=== PATIENT | female | born 1955 | race Caucasian/White ===

== ENCOUNTER 2017-11-08 19:28 | Emergency (ER) | payer BC ==
[2017-11-08 19:42] VITALS: TEMP 96.5; O2SAT 99
--- NOTE | 2017-11-08 19:42 | ED.PDOC ---
History of Present Illness - General Chief Complaint: Trauma Stated Complaint: slipped, falling on left wrist, abrasion L elbow Time Seen by Provider: 11/08/17 19:42 Source: patient, RN notes reviewed, Vital Signs reviewed, family Exam Limitations: no limitations - History of Present Illness Timing/Duration: 1 hour Severity: moderate Improving Factors: immobilization Worsening Factors: movement Associated Symptoms: denies symptoms Allergies/Adverse Reactions: Allergies NO KNOWN ALLERGY Allergy (Verified 11/08/17 19:43) Home Medications: Ambulatory Orders Acetamin W/Cod #3 Tab [Tylenol w/CODEINE #3] 1 ea PO Q4H PRN #20 tab 11/08/17 Lisinopril 20 mg PO DAILY 11/08/17 Review of Systems - Review of Systems Constitutional: States: no symptoms reported EENTM: States: no symptoms reported Respiratory: States: no symptoms reported Cardiology: States: no symptoms reported Gastrointestinal/Abdominal: States: no symptoms reported Musculoskeletal: States: see HPI Skin: States: other - abrasion Neurological: States: no symptoms reported Family Medical History - Family History Mother Family History: Unknown Physical Exam - Physical Exam General Appearance: Alert Eye Exam: bilateral normal Ears, Nose, Throat: hearing grossly normal, normal ENT inspection, normal pharynx Neck: non-tender, full range of motion, supple, normal inspection Respiratory: chest non-tender, lungs clear, normal breath sounds, no respiratory distress, no accessory muscle use Cardiovascular/Chest: normal peripheral pulses, regular rate, rhythm, no edema, no gallop, no JVD, no murmur Peripheral Pulses: radial,left: 2+ Gastrointestinal/Abdominal: normal bowel sounds, non tender Back Exam: normal inspection, no CVA tenderness, no vertebral tenderness Extremity: other - edema/ tenderness to the left wrist, normal finger neuro and no tenderness and full passive and active ROM of the rest of the extremity Progress - Progress Progress: 11/08/17 20:22 xray shows radial head fracture, non displaced pt placed in left wrist splint by nurse, neurovascular intact Departure - Departure Clinical Impression: Wrist sprain Qualifiers: Encounter type: initial encounter Laterality: left Qualified Code(s): S63.502A - Unspecified sprain of left wrist, initial encounter Wrist contusion Qualifiers: Encounter type: initial encounter Laterality: left Qualified Code(s): S60.212A - Contusion of left wrist, initial encounter Elbow abrasion Qualifiers: Encounter type: initial encounter Laterality: left Qualified Code(s): S50.312A - Abrasion of left elbow, initial encounter Distal radius fracture, left Qualifiers: Encounter type: initial encounter Fracture type: closed Fracture morphology: unspecified fracture morphology Qualified Code(s): S52.502A - Unspecified fracture of the lower end of left radius, initial encounter for closed fracture Time of Disposition: 20:25 Disposition: Discharge to Home or Self Care Condition: Excellent Departure Forms: ED Discharge - Pt. Copy, Patient Portal Self Enrollment Instructions: DI for Trauma Diet: resume usual diet Activity: increase activity as tolerated Referrals: Tommy Dietrich MD [Primary Care Provider] - 1-2 Weeks Tony Sheridan MD [Active Staff] - 1-5 Days Prescriptions: Acetamin W/Cod #3 Tab [Tylenol w/CODEINE #3] 1 ea PO Q4H PRN #20 tab PRN Reason: Pain Home Medications: Ambulatory Orders Acetamin W/Cod #3 Tab [Tylenol w/CODEINE #3] 1 ea PO Q4H PRN #20 tab 11/08/17 Lisinopril 20 mg PO DAILY 11/08/17
[2017-11-08] MEDS ORDERED: NEOMYCIN-BACITRACIN-POLYMYXIN 0.9 GM UD TOP SCH (20:00)
--- NOTE | 2017-11-08 20:08 | RAD ---
EXAM DESCRIPTION: Wrist,Left 3 Views CLINICAL HISTORY: wrist pain, trauma COMPARISON: None FINDINGS: 3 view(s) submitted. There is an intra-articular fracture of the distal radius in near-anatomic alignment. No other definite fracture.. IMPRESSION: Distal radius fracture.. Electronically signed by: Toni Valdes 11/08/2017 8:07 PM CDT
[2017-11-08] MEDS ORDERED: HYDROcodone 5MG/APAP 325MG 1 EA TAB PO ONE (21:12)
[2017-11-08 21:20] VITALS: BP 151/92
== END 2017-11-08 21:20 | disposition home or self-care (01) ==
LOC: ER 19:28
DX: S52.502A Unspecified fracture of the lower end of left radius, initial encounter for closed fracture (principal); S63.502A Unspecified sprain of left wrist, initial encounter; S50.312A Abrasion of left elbow, initial encounter; W01.0XXA Fall on same level from slipping, tripping and stumbling without subsequent striking against object, initial encounter; Y93.H2 Activity, gardening and landscaping; Y92.007 Garden or yard of unspecified non-institutional (private) residence as the place of occurrence of the external cause

== ENCOUNTER → 2017-11-12 | Outpatient (CLI) | payer BC ==
--- NOTE | 2017-11-12 09:02 | RAD ---
EXAM DESCRIPTION: Wrist,Left 3 Views CLINICAL HISTORY: 62 years Female, PAIN IN LEFT WRIST COMPARISON: Radiographs dated 11/08/2017. FINDINGS: The visualized bones are well-mineralized.Again identified is a nondisplaced fracture of the radial styloid process with associated soft tissue swelling. Overlying orthopedic cast limits detailed bony evaluation. IMPRESSION: Nondisplaced fracture of the radial styloid process with associated soft tissue swelling is again noted. Electronically signed by: Ann Perez MD 11/12/2017 9:00 AM CDT
== END ==
LOC: RAD 08:27
PROVIDERS: ATTEND Orthopaedic Surgery
DX: S52.502D Unspecified fracture of the lower end of left radius, subsequent encounter for closed fracture with routine healing (principal)

== ENCOUNTER → 2017-11-26 | Outpatient (CLI) | payer BC ==
--- NOTE | 2017-11-26 13:33 | RAD ---
EXAM DESCRIPTION: Wrist,Left 3 Views CLINICAL HISTORY: CLOSED FRACTURE OF DISTAL END OF RADIUS LEFT COMPARISON: November 12, 2017 IMPRESSION: 3 views of the left wrist again demonstrates nondisplaced radial styloid fracture. There has been no significant interval change in appearance. No progressive periosteal reaction or thickening is seen. No new fracture or dislocation. Moderate osteoarthritic changes of the first carpometacarpal joint are again seen. Electronically signed by: Devonte Smith MD 11/26/2017 1:32 PM CDT
== END ==
LOC: RAD 09:14
PROVIDERS: ATTEND Orthopaedic Surgery
DX: S52.502D Unspecified fracture of the lower end of left radius, subsequent encounter for closed fracture with routine healing (principal)

== ENCOUNTER → 2017-12-17 | Outpatient (CLI) | payer BC ==
--- NOTE | 2017-12-17 14:36 | RAD ---
EXAM DESCRIPTION: Wrist,Left 3 Views CLINICAL HISTORY: 62 years, Female, CLOSED FRACTURE OF DISTAL END OF RADIUS - LEFT COMPARISON: Previous study November 26, 2017 FINDINGS: Left wrist 3 x-ray views shows fracture distal radius with no change in alignment compared to previous study. Early callus formation across the fracture line is thought likely. Carpal relationships are well-maintained. Distal ulna appears intact. Normal metacarpals. Degenerative changes are seen at the lateral carpus. IMPRESSION: Healing fracture of the distal left radius. Degenerative changes of the lateral carpus and first metacarpal phalangeal joint. Electronically signed by: Vincenzo Lund MD 12/17/2017 2:35 PM CDT
== END ==
LOC: RAD 09:24
PROVIDERS: ATTEND Orthopaedic Surgery
DX: S52.502D Unspecified fracture of the lower end of left radius, subsequent encounter for closed fracture with routine healing (principal)

== ENCOUNTER → 2018-01-13 | Outpatient (CLI) | payer BC ==
--- NOTE | 2018-01-13 11:01 | RAD ---
EXAM DESCRIPTION: Wrist,Left 3 Views CLINICAL HISTORY: 62 years Female, CLOSED FX OF DISTAL END OF RADIUS COMPARISON: None available. FINDINGS: The visualized bones are well-mineralized. Complete healing of the fracture of the distal radius. Degenerative changes are identified in the first carpometacarpal joint. The soft tissues appear grossly unremarkable. IMPRESSION: Complete healing of the fracture of the distal radius. Electronically signed by: Ann Perez MD 01/13/2018 11:00 AM CDT
== END ==
LOC: RAD 09:25
PROVIDERS: ATTEND Orthopaedic Surgery
DX: S52.502D Unspecified fracture of the lower end of left radius, subsequent encounter for closed fracture with routine healing (principal)

== ENCOUNTER → 2018-02-10 | Outpatient (CLI) | payer BC ==
--- NOTE | 2018-02-11 07:57 | MAM ---
EXAM DESCRIPTION: 3D Screening BILATERAL : Digital Mammography. CLINICAL HISTORY: 63 years Female SCREENING . No complaints. No personal history or family history of breast cancer. Childbirth. Postmenopausal 80 years. No HRT. Lifetime risk of developing breast cancer (Tyrer-Cuzick model)(%): 4.9 COMPARISON: Baseline study at this facility. No prior reports available. TECHNIQUE: Bilateral CC and MLO projection full-field images, Digital tomosynthesis mammographic technique. Bilateral digital 2-D full-field MLO images. CAD not utilized. FINDINGS: The breast parenchymal density pattern is: Scattered areas of fibroglandular density. No skin thickening or nipple retraction. Focal asymmetry in the 12 100-100 clock position of the middle third of the left breast approximately 6 cm from the nipple. Associated with a solitary coarse calcification. Bilateral axillary lymph nodes. Solitary microcalcifications and coarse calcifications in the anterior right breast. No new focal, stellate mass or density, focal asymmetry , and no suspicious microcalcifications right breast IMPRESSION: BI-RADS CATEGORY: 0 - INCOMPLETE- Need additional imaging evaluation. FOLLOW-UP: Recall for additional imaging: Digital diagnostic mammography of the left breast with targeted left breast ultrasound if indicated by the diagnostic images.. Written communication concerning the IMPRESSION and Follow-up, will be mailed to the patient and referring health care provider. Electronically signed by: Toni Matthew MD 02/11/2018 7:56 AM CDT
--- NOTE | 2018-02-11 11:02 | US ---
US THYROID CLINICAL STATEMENT: E04.1. COMPARISON: None FINDINGS: Size right thyroid lobe: 5.1 x 1.8 x 1.4 cm Size left thyroid lobe: 4.8 x 2.0 x 1.8 cm Size isthmus: 0.36 cm Estimated total number of nodules greater than or equal to 1 cm: 2 Nodule 1: Size: 0.3 x 0.3 x 0.2 cm Location: Right Mid Composition: cystic or completely cystic: 0 points Echogenicity: anechoic: 0 points Shape: wider than tall: 0 points Margins: smooth: 0 points Echogenic foci: none: 0 points ACR Total Points: 0; ACR TI-RADS risk category: TR1 - benign nodule Nodule 2: Size: 0.4 x 0.3 x 0.3 cm Location: Right Lower Composition: solid or almost completely solid: 2 points Echogenicity: hypoechoic: 2 points Shape: wider than tall: 0 points Margins: smooth: 0 points Echogenic foci: none: 0 points ACR Total Points: 4; ACR TI-RADS risk category: TR4 - moderately suspicious nodule. Nodule 3: Size: 2.1 x 1.7 x 1.1 cm Location: Left Mid Composition: mixed cystic and solid: 1 point Echogenicity: very hypoechoic: 3 points Shape: wider than tall: 0 points Margins: smooth: 0 points Echogenic foci: none: 0 points ACR Total Points: 4; ACR TI-RADS risk category: TR4 - moderately suspicious nodule. Nodule 4: Size: 1.1 x 1.0 x 0.7 cm Location: Left Lower Composition: solid or almost completely solid: 2 points Echogenicity: very hypoechoic: 3 points Shape: wider than tall: 0 points Margins: smooth: 0 points Echogenic foci: none: 0 points ACR Total Points: 5; ACR TI-RADS risk category: TR4 - moderately suspicious nodule. Soft Tissue: no solid or cystic distinct lesions abutting the thyroid gland. No large calcifications or parenchymal edema. No abnormal vascularity or overlying skin changes. IMPRESSION: 1. Nodule 1: ACR TI-RADS 2017 Category 0. Recommend: No further follow-up. 2. Nodule 2: ACR TI-RADS 2017 Category 4. Recommend: No further follow-up. 3. Nodule 3: ACR TI-RADS 2017 Category 4. Recommend: Ultrasound-guided fine needle aspiration. Please see recommendations below.* 4. Nodule 4: ACR TI-RADS 2017 Category 5. Recommend: Ultrasound-guided fine needle aspiration The soft tissues around the thyroid gland are unremarkable. *ACR TI-RADS 2017 Recommendations: TR1: No FNA or follow up TR2: No FNA or follow up TR3: FNA if >/= 2.5 cm, follow up if 1.5 - 2.4 cm in 1, 3, and 5 years TR4: FNA if >/= 1.5 cm, follow up if 1.0 - 1.4 cm in 1, 2, 3, and 5 years TR5: FNA if >/= 1.0 cm, follow up if 0.5 - 0.9 cm every year for 5 years ACR TI-RADS recommends that no more than two nodules with the highest ACR TI-RADS total point should be biopsied and no more than four nodules should be followed. Electronically signed by: Toni Matthew MD 02/11/2018 11:00 AM CDT
== END ==
LOC: MAMMO 12:51
PROVIDERS: ATTEND Family Medicine
DX: Z12.31 Encounter for screening mammogram for malignant neoplasm of breast (principal); E04.1 Nontoxic single thyroid nodule

== ENCOUNTER → 2018-03-01 | Outpatient (CLI) | payer BC ==
--- NOTE | 2018-03-01 13:51 | US ---
EXAM DESCRIPTION: Breast,Left: Ultrasound CLINICAL HISTORY: 63 yearsFemaleABNORMAL MAMMO COMPARISON: Digital diagnostic tomosynthesis left breast on this visit. TECHNIQUE: Transcutaneous scanning of the left breast utilizing murray-scale and Doppler modes. Scanning performed by the formal waiter/waitress with observation by Dr. Matthew. FINDINGS: Scanning of the upper-outer quadrant of the left breast in the upper inner quadrant of the left breast from the 10:00 position to the 1:00 position anterior middle third of the breast. Emphasis on the region 6 cm from the nipple. Mostly fatty echotexture with heterogeneous islands of fibroglandular tissues. Multiple small cysts are noted in the 1:00 position. The largest of these cysts is approximately 4 mm diameter. Parallel orientation, anechoic, thin-walled, and posterior enhancement features. No abnormal vascularity. No distinct solid mass or large calcifications. No parenchymal edema or overlying skin changes. IMPRESSION: 1. Bi-Rads Category 2: Benign. 2. Please refer to left breast digital diagnostic tomosynthesis examination and report on this visit. The FINDINGS and the FOLLOW-UP plan were reviewed in person with the patient after the examination. Written communication explaining the IMPRESSION and FOLLOW-UP will be mailed to the patient and referring care provider. Electronically signed by: Toni Matthew MD 03/01/2018 1:50 PM CDT
--- NOTE | 2018-03-01 18:59 | MAM ---
EXAM DESCRIPTION: 3D Diagnostic, Left: Digital Mammography CLINICAL HISTORY: 63 yearsFemaleABNORMAL MAMMO focal asymmetry middle third superior left breast. COMPARISON: Targeted left breast ultrasound included with this examination.. Bilateral screening digital breast tomosynthesis 02/10/2018.. TECHNIQUE: Left LM projection full-field images, digital mammographic tomosynthesis technique. Digital spot magnification in the CC projection and spot compression MLO projection. CAD not utilized. FINDINGS: The breast parenchymal density pattern is: Scattered areas of fibroglandular density. No skin thickening or nipple retraction focal asymmetry is less distinctive with the spot images. No definite mass. Scattered benign type calcifications. Ultrasound: Scanning of the upper-outer quadrant of the left breast in the upper inner quadrant of the left breast from the 10:00 position to the 1:00 position anterior middle third of the breast. Emphasis on the region 6 cm from the nipple. Mostly fatty echotexture with heterogeneous islands of fibroglandular tissues. Multiple small cysts are noted in the 1:00 position. The largest of these cysts is approximately 4 mm diameter. Parallel orientation, anechoic, thin-walled, and posterior enhancement features. No abnormal vascularity. No distinct solid mass or large calcifications. No parenchymal edema or overlying skin changes. IMPRESSION: Benign exam. BIRAD CATEGORY: 2 BENIGN FINDINGS. RECOMMENDATIONS: FOLLOW UP: Return to routine digital bilateral screening, one year interval from January 2018. Written communication explaining the IMPRESSION and follow-up, will be mailed to the patient and referring health care provider. According to the [employer], yearly mammograms are recommended starting at age 40 and continuing as long as a woman is in good health. Any breast change noted on a breast self-exam should be reported promptly to the patient's healthcare provider. Breast MRI is recommended for women with an approximately 20-25% or greater lifetime risk of breast cancer, including women with a strong family history of breast or ovarian cancer and women who have been treated for Hodgkin's disease. A negative mammographic report should not delay tissue diagnosis in patients with significant clinical history or physical findings. Extremely dense breast tissue limits the sensitivity of digital mammography. Electronically signed by: Toni Matthew MD 03/01/2018 6:58 PM CDT
== END ==
LOC: MAMMO 08:28
PROVIDERS: ATTEND Family Medicine
DX: R92.8 Other abnormal and inconclusive findings on diagnostic imaging of breast (principal)
CPT/HCPCS: 76641; 77065; G0279

== ENCOUNTER → 2018-03-02 | Outpatient (CLI) | payer BC ==
--- NOTE | 2018-03-02 15:26 | US ---
Thyroid Ultrasound Biopsy CLINICAL INFORMATION: Mass. Seen on prior ultrasound thyroid scan 02/10/2018. TECHNIQUE: Procedure was explained to the patient with risks and benefits. The patient gave verbal and written consent. Sterile preparation draping. 1% xylocaine dermal anesthetic 9-1 mixture with sodium bicarbonate. Sterile ultrasound guidance. A total of 6 passes into left mid thyroid mass.; 3 needle samplings with a separate 1.5 inch, 25-gauge needle per sample, and 3 aspiration, with a separate 1.5 inch, 25-gauge needle/10-cc syringe set, per aspiration. Each sample was placed on a separate slide and fixed in 95% alcohol container. Saccomanno fluid drawn into aspirate needle and rinse injected into Saccomanno container. Specimens to be sent for pathologic examination at remote facility. . Patient tolerated procedure well. Biopsy #: 1 Nodule reference number based on prior diagnostic ultrasound:3 Maximum size: 2.1 cm Location: left; mid ACR TI-RADS risk category: TR4 (4-6 points) Reason for biopsy: meets ACR TI-RADS criteria Complications: None. IMPRESSION: Successful ultrasound guided fine needle aspiration of thyroid nodule in the mid left lobe. The mass decreased significantly in size after aspirations were performed. Pathology findings. At remote laboratory. Electronically signed by: Toni Matthew MD 03/02/2018 3:25 PM CDT
== END ==
LOC: US 08:43
PROVIDERS: ATTEND Family Medicine
DX: E04.1 Nontoxic single thyroid nodule (principal)

== ENCOUNTER → 2019-03-06 | Outpatient (CLI) | payer BC | LOC: GMAJS 10:45 | PROVIDERS: ATTEND Physician Assistant | DX: R07.9 Chest pain, unspecified (principal); R42 Dizziness and giddiness ==

== ENCOUNTER → 2019-03-13 | Outpatient (CLI) | payer BC ==
--- NOTE | 2019-03-13 12:57 | RAD ---
EXAM DESCRIPTION: Chest,2 Views CLINICAL HISTORY: CHEST PAIN UNSPECIFIED COMPARISON: None FINDINGS: Two-view chest x-ray shows cardiomediastinal silhouette and pulmonary vasculature to be within normal limits. Tortuosity the thoracic aorta. The lungs are normally aerated and clear. Costophrenic angles are sharp. Moderate disc degenerative changes of the spine are seen. Age-indeterminate anterior wedging of the lower thoracic vertebral bodies noted. IMPRESSION: No radiographic evidence of acute cardiopulmonary disease. Electronically signed by: Devonte Smith MD 03/13/2019 12:56 PM CDT
== END ==
LOC: RAD 10:00
PROVIDERS: ATTEND Family Medicine
DX: R07.9 Chest pain, unspecified (principal)